=== PATIENT | female | born 1940 | race Caucasian/White ===

== ENCOUNTER 2025-02-06 09:32 | Outpatient (CLI) | payer MEDICARE, SELFPAY ==
--- NOTE | ~2025-02-06 | CT_ITS ---
EXAMINATION: CT_LERTCHWO_CT DATE: 02/06/2025 09:53 INDICATION: Right hip osteoarthritis. TECHNIQUE: Computed tomography (CT) of the right lower limb was performed without intravenous contrast. Automated exposure control and iterative reconstruction technique were employed. The dose-length product was 960.19 mGy-cm. COMPARISON: None FINDINGS: Alignment is normal. No fracture. There is severe lumbar spondylosis. There is severe right hip osteoarthritis and moderate left hip osteoarthritis. 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 There are small bilateral knee joint effusions. There is diverticulosis of the colon without evidence of diverticulitis. IMPRESSION: 1. Severe right hip osteoarthritis and moderate left hip osteoarthritis. Reviewed, dictated and finalized at location E.
--- NOTE | 2025-02-06 10:07 | ECG_ITS ---
Test Date: 2025-02-06 10:25:33 Measurements Intervals [place] Rate: 68 P: 79 NC: 173 QRS: 12 QRSD: 83 T: 46 QT: 390 QTc: 417 Interpretive Statements SINUS RHYTHM NONSPECIFIC T-WAVE ABNORMALITY No previous ECG available for comparison Electronically Signed On 02-06-2025 11:28:06 CDT by Ryan Hay M.D.
[2025-02-06 10:21] LABS: Hematocrit 42.6 % (37.0-47.0); Hemoglobin 14.1 g/dL (12.0-15.0)
[2025-02-06 10:41] LABS: Albumin Level 4.0 g/dL (3.5-5.1); Estimated Glomerular Filt Rate 58
== END 2025-02-06 09:33 | disposition home or self-care (01) ==
PROVIDERS: PCP Physician Assistant; Visit Provider Orthopaedic Surgery
DX: Z01.818 Encounter for other preprocedural examination (principal); M16.0 Bilateral primary osteoarthritis of hip
CPT/HCPCS: 36415; 73700; 82040; 82565; 85014; 85018; 93005

== ENCOUNTER 2025-04-07 12:14 | Outpatient (CLI) | payer MEDICARE, SELFPAY ==
[2025-04-07 15:41] LABS: MRSA (PCR) NOT DETECTED (NOT DETECTE)
== END 2025-04-07 12:15 | disposition home or self-care (01) ==
LOC: ANHSURGERY 12:52
PROVIDERS: PCP Physician Assistant; Visit Provider Orthopaedic Surgery
DX: Z01.818 Encounter for other preprocedural examination (principal); M16.11 Unilateral primary osteoarthritis, right hip
CPT/HCPCS: 80307; 87641

== ENCOUNTER 2025-05-05 01:23 | Day surgery (SDC) | payer MEDICARE, SELFPAY ==
--- NOTE | 2025-04-07 12:55 | PC.NURSE ---
[facility] has started construction of its new state of the art ER which will open Spring 2026. With this, we anticipate parking may be a challenge for some our surgical patients and families. Parking spaces are limited but are available for all Surgical, obstetrics, and ER patients sharing this lot. If you arrive and find you are having a hard time finding a parking space, please note that we understand the challenges, please drive around the hospital and park near Hospital Entrance 1. When you enter this entrance, you can ask a volunteer to direct or take you back to the surgical waiting area to check in. We appreciate everyone?s understanding of these expected challenges while we build for your future. Report to the Outpatient Waiting Room, entrance under the green pavilion located off [address], at time _10 AM on date _05/05/25 . Planned Procedure Time: _1200 NOON .? Time changes happen often and if your time is changed the preop area will call you the afternoon before. - You and your visitor will be asked to self-screen and do not enter if you have any COVID symptoms. Please call surgeon if you need to reschedule. - A mask is optional within the hospital at this time. Patients may have clear liquids (water, carbonated beverages, clear teas, apple juice) until 3 hours prior to surgery( 9AM) with a maximum of 20 ounces. - No food from midnight until time of surgery and no smoking, or chewing tobacco (or any form of nicotine). No chewing gum, candy or mints. - Take only the following medications with a SIP of water on the morning of surgery: __AMLODIPINE_,VENLAFAXINE DO NOT STOP ANY OF YOUR OTHER PRESCRIPTION MEDICATIONS PRIOR TO SURGERY EXCEPT THE FOLLOWING Hold all vitamins and supplements for 3 days per anesthesiologist.LAST DOSE05/01/25 Medications to discontinue per physician _HOLD ASPIRIN 7 DAYS PRE OP PER DR COLLIER Date to take last dose____04/27/25 Please no make-up, nail kyrgyz, hairspray, perfume, deodorant, or body powder the day of surgery.? No jewelry (including any body piercings) or valuables the day of surgery, leave them at home.? Please take a shower or bath the night before, or the morning of, surgery with an antibacterial soap.? Wear comfortable, loose fitting clothing.? Children are encouraged to wear pajamas. - Jewelry must be removed prior to entering the operating room.? Rings and piercings that are not removed may be cut off. - The hospital will not accept responsibility for valuables.? - Please leave all valuables, including medications, at home the day of surgery. If you are going home after surgery, a licensed recycling collections driver must drive you home.? - NO public transportation without another adult if you receive anesthesia. - We recommend that an adult stay with you for 24 hours following discharge. - We also recommend that you do not drive, make important decision, drink alcoholic beverages, or take any drugs that were not prescribed by your health care provider for at least 24 hours after your discharge time. For Pediatric surgeries, we recommend two adults accompany the child home. Follow any additional instructions given to you from your surgeon. VERBAL AND WRITTEN instructions given to ___PATIENT and asked if any additional questions and then verbalized understanding. Patient advised to call surgeon office or pre surgery nurse liaison [phone] if any additional questions.
[2025-04-07 12:58] VITALS: BMI 34.3
[2025-04-07 13:50] VITALS: BP 150/73; PULSE 68; RESP 18; TEMP 37.1; O2SAT 97
[2025-05-05] VITALS (11 sets, daily range): BP systolic 119–148; BP diastolic 49–80; PULSE 68–94; RESP 12–18; TEMP 36.1–36.9; O2SAT 92–100; BMI 33.8
--- NOTE | ~2025-05-05 | XR_ITS ---
EXAMINATION: XR hip RT min 2V DATE: 05/05/2025 15:32 INDICATION: Status post right total hip arthroplasty TECHNIQUE: Anteroposterior view of the pelvis and anteroposterior and cross- table lateral views of the right hip were obtained. COMPARISON: None. FINDINGS: Placement of a noncemented right total hip arthroplasty which appears well seated in near-anatomic alignment. No fracture. Expected soft tissue gas at the operative bed. IMPRESSION: 1. Expected appearance post right total hip arthroplasty which is in near- anatomic alignment. See procedure note for further detail. Reviewed, dictated and finalized at location A. [employer] [employer]CHIT[facility] IMPRESSION: 1. Expected appearance post right total hip arthroplasty which is in near-anato lawson alignment. See procedure note for further detail.
--- NOTE | 2025-05-05 08:06 | WPDHPUPDATE1 ---
History and Physical Update Update Date/Time: 05/05/25 08:06 History and Physical has been reviewed, including an updated exam of the patient. There are NO changes in the patient's condition. Risks, benefits, and alternatives have been discussed and questions answered. Patient agrees to proceed with procedure.
[2025-05-05] MEDS: ACETAMINOPHEN 500 MG TABLET 1000 MG PO (11:20)
[2025-05-05] MEDS: TRANEXAMIC ACID 1,000MG/ISO100 1,000 MG/100 ML BAG 200 MG IVPB (11:32)
--- NOTE | 2025-05-05 12:05 | WPDANESEPPF ---
Anes - Initial Pre Proc Eval Procedure: Operation Date: 05/05/25 12:00 Proposed Procedures p Right Total Hip Arthroplasty - Kike Montes MD Date/Time: 05/05/25 12:05 Surgeon: Kike Montes MD Pre Op Diagnosis: Prim O A Rt Hip Patient Data Age: 84 Gender: F Height: 1.52 m Weight: 78.6 kg Last Vital Signs Temp 36.9 C 05/05/25 10:00 Pulse 68 05/05/25 10:00 Resp 18 04/07/25 13:50 BP 148/77 H 05/05/25 10:00 Pulse Ox 100 05/05/25 10:00 O2 Del Method Room Air 05/05/25 10:00 Allergies Allergy/AdvReac Type Severity Reaction Status Date / Time insect venom Allergy Unknown Swelling Verified 05/05/25 10:47 Home Medications ?Medication ?Instructions ?Recorded ?Confirmed ?Type amlodipine 5 mg tablet 5 mg PO DAILY 10/10/24 05/05/25 History clobetasol 0.05 % topical cream 1 applic topical BID 10/10/24 04/07/25 History lansoprazole 30 mg capsule,delayed 30 mg PO DAILY 10/10/24 04/07/25 History release potassium chloride 10 mEq 10 meq PO DAILY 10/10/24 05/05/25 History capsule,extended release trazodone 50 mg tablet 25 mg PO QHS PRN insomnia 10/10/24 04/07/25 History venlafaxine 75 mg capsule,extended 75 mg PO DAILY 10/10/24 05/05/25 History release 24 hr (Effexor XR) hydrochlorothiazide 12.5 mg tablet 12.5 mg PO DAILY 10/23/24 05/05/25 History aspirin 325 mg capsule 650 mg PO BID PAIN 04/07/25 05/05/25 History multivitamin (Daily Value tablet) 1 tablet PO DAILY 04/07/25 05/05/25 History Laboratory Tests 05/05/25 10:21 Blood Type B Positive Antibody Screen Negative Patient hx anesthesia problems: none Family hx anesthesia problems: none Results Review: All pre-operative results and documents have been reviewed as part of the pre-operative evaluation. [facility] Past Medical History Medical History (Updated 05/05/25 @ 12:06 by Hakeem Vogt MD) HTN (hypertension) Overweight Surgical History Surgical History H/O colonoscopy Hx of tonsillectomy H/O tubal ligation Social History Social History Smoking status: Former smoker Alcohol intake: current Alcohol use details: occasional alcohol use Substance use: never Substance use type: does not use Lack of Transportation: No Lack of Food: Never True Current Housing: I Have Housing Concerned About Future Housing: No Difficulty Paying Gas/Electric Bills: No Difficulty Paying for Meds: No Currently Unemployed: Decline to Answer Education: High School Diploma/GED Difficulty w/ Childcare or Family Care: No Anes - Eval Final PreProcedure Day of Procedure 05/05/25 12:05 Patient weight: obese Heart: regular rate and rhythm Lungs: clear to auscultation Airway: Mallampati scale class II Neurological: alert and oriented Last oral intake: >/= 8 hours ASA classification: III Emergent: no Anesthetic plan: proceed Anesthesia type and monitoring: general ETT and standard monitoring Results Review: All pre-operative results and documents have been reviewed as part of the pre-operative evaluation. Informed Consent: The patient's anesthetic plan and its attendant risks and benefits were discussed with the patient/family/POA. Questions were solicited and answers provided to the satisfaction of the patient/family/POA.
[2025-05-05] MEDS: ceFAZolin 2 GM in SODIUM CHLORIDE 0.9% IV 50 ML 100 ML IVPB ×2 (12:26→20:51)
[2025-05-05] MEDS: SODIUM CHLORIDE 0.9% IV 37.7 ML, MORPHINE SULFATE INJ (*CRX) 2 MG, ROPivacaine HCL 1% 2... INFILTRATE (13:19)
[2025-05-05] MEDS: LACTATED RINGERS 1,000 ML 30 ML IV CONT ×2 (15:14)
--- NOTE | 2025-05-05 15:44 | P.OP_ITS ---
Procedure Note - Detailed Date of Procedure 05/05/25 Pre-op Diagnosis Right hip degenerative arthritis. Post-op Diagnosis Same Procedure Performed Right Total Hip Arthroplasty Surgeon Kike Montes MD Anesthesia General Findings Custom hip optimal fit. Good bone quality. Description of Procedure The patient was given preoperative antibiotics. A general anesthetic was administered. The patient was carefully placed in the lateral decubitus position on the PEG board. The shoulders and hips were carefully positioned for component and leg length positioning reference. The hip was prepped and draped in the usual sterile fashion. A longitudinal incision was created over the posterior aspect of the greater trochanter. Careful dissection was brought down through the deep fascia with electrocautery. A minimally invasive optimized posterior approach to the hip was performed. The short external rotators and capsule were taken down in an L-shaped capsulotomy. The piriformis was spared. The tissue was tagged for later repair using number 2 high strength suture. The femoral neck was dislocated and the cut measured with the patient specific guide. The femoral head was removed. The acetabulum was carefully exposed. The inferior capsule was released. The labrum was resected. The acetabulum was sequentially reamed to 2 under the intended cup size. The cup was impacted into position with excellent press-fit. Typical anatomic landmarks were used to confirm cup positioning with preoperative templating. Attention was turned to the femur, which was carefully exposed. The version guide was used to align the stem. The hip was reamed and then broached sequentially. Excellent press-fit was obtained with the broach. The hip was trialed. Measurements were utilized, including the lesser trochanter as well as the center of the femoral head and the tip of the trochanter, and excellent assessment of the offset and leg lengths were confirmed. The real component was impacted into position. Trialing confirmed appropriate leg length and offset with soft tissue balancing as well apparent feel of the leg, both at the knee and the heel. Soft tissues were assessed using the the iliotibial band. Reduction of the posterior capsule and external rotators were also used as a secondary assessment. The hip was copiously irrigated with pulsatile lavage periodically throughout the procedure. The real components were then assembled and reduced. The hip was stable throughout typical maneuvers, including extension, external rotation to 70 degrees, the position of sleep as well as flexion to 90 degrees with internal rotation past 35 degrees. The shake test confirmed stability without impingement. Osteophytes were removed as necessary. The short external rotators and capsule were repaired back to the posterior trochanter through drill holes. The deep fascia was repaired with running number 2 barbed suture, followed by 2-0 Stratafix suture and 3-0 Stratafix suture in the dermis. Steri- Strips were placed on the skin, followed by a sterile occlusive dressing. There were no complications. Meticulous hemostasis was maintained with the AquaMantys device. The patient was brought to the recovery room in stable condition. There were no complications. Implants Restore 3D Actera hip custom stem size 3 was utilized with excellent press-fit. The 50 mm [place] acetabular component was impacted with excellent press-fit stability. Standard polyethylene liner the +0, 36 mm Biolox ceramic femoral head was utilized. Estimated Blood Loss 250 Drains No Packing No Pathology None sent Complications No immediate complications Condition Stable Disposition PACU [facility] Billing Surgery - Charge Forward: Surgery Billing
[2025-05-05] MEDS: fentaNYL CITRATE INJ (*CRX) 100 MCG/2 ML VIAL 25 MCG IV PUSH (16:16)
[2025-05-05] MEDS: ASPIRIN 81 MG ENTERIC TABLET PO (17:19)
[2025-05-05] MEDS: SENNA/DOCUSATE SODIUM TABLET 2 TAB PO (17:19)
[2025-05-05] MEDS: SODIUM CHLORIDE 0.9% IV 1,000 ML 125 ML IV CONT (17:20)
--- NOTE | 2025-05-05 17:44 | ADMGEN ---
This patient, Kelly Nolasco, was admitted to 3 [facility] Surg Room 313-01. Patient/family oriented to hospital policies and general routines including ID bracelet, bed and alarms, visiting hours, pain management, procedures, bathroom and other care routines, personal items, smoking policy, room service/diet, and visiting hours. Information on how to activate the Rapid Response Team has been discussed. Patient/Family are encouraged to report perceived risks to care and to ask questions if they do not understand what they are told or what they should do. received report from lucia
[2025-05-05] MEDS: PROPARACAINE HCL 0.5% 15 ML OPHTH SOLN 1 DROP EACH EYE (17:52)
[2025-05-05] MEDS: ARTIFICIAL TEARS OPHTH SOLN 15 ML BOTTLE 1 DROP EACH EYE (18:26)
[2025-05-05] MEDS: oxyCODONE/ACETAMINOPHEN (*CRX) 10-325 MG TABLET 1 TAB PO (20:50)
[2025-05-06] MEDS: SODIUM CHLORIDE 0.9% IV 1,000 ML 125 ML IV CONT (02:32)
[2025-05-06] MEDS: ceFAZolin 2 GM in SODIUM CHLORIDE 0.9% IV 50 ML 100 ML IVPB (03:48)
[2025-05-06 05:34] VITALS: BP 158/61; PULSE 83; RESP 18; TEMP 36.7; O2SAT 98
[2025-05-06 06:20] LABS: Hematocrit 36.8 % (37.0-47.0); Hemoglobin 11.8 g/dL (12.0-15.0); Immature Granulocyte Percent A 0.6 % (0-0.5); Lymphocytes Absolute Auto 1.54 K/mm3 (0.9-3.2); Mean Corpuscular HGB Conc 32.1 g/dl (32-36); Mean Corpuscular Hemoglobin 30.8 pg (26-34); Mean Corpuscular Volume 96.1 fl (80-100); Nucleated Red Blood Cells Absolute Auto 0.000 K/mm3 (0.0-0.012); Nucleated Red Blood Cells Perc 0.0 % (0.0-0.2); Platelet Count Result 237 k/mm3 (150-375); Red Blood Count 3.83 M/mm3 (4.2-5.4); White Blood Count 17.2 K/mm3 (4.5-10.0)
[2025-05-06 06:44] LABS: Anion Gap 5 mmol/L (4-12); Blood Urea Nitrogen 17 mg/dL (7-17); Calcium 8.5 mg/dL (8.4-10.2); Carbon Dioxide 26 mmol/L (22-30); Chloride 107 mmol/L (98-107); Estimated CRCL calculation 39 ml/min; Estimated Glomerular Filt Rate > 60; Glucose 106 mg/dL (65-110); Potassium 3.5 mmol/L (3.4-5.0); Sodium 138 mmol/L (137-145)
[2025-05-06] MEDS: oxyCODONE/ACETAMINOPHEN (*CRX) 10-325 MG TABLET 1 TAB PO (08:03)
[2025-05-06] MEDS: SENNA/DOCUSATE SODIUM TABLET 2 TAB PO (09:45)
[2025-05-06] MEDS: MULTIVITAMINS THERAPEUTIC TAB (*BKC) 1 TABLET PO (09:45)
[2025-05-06] MEDS: ASPIRIN 81 MG ENTERIC TABLET PO (09:45)
[2025-05-06] MEDS: POTASSIUM CHLORIDE 10 MEQ ER TABLET PO (09:46)
[2025-05-06] MEDS: VENLAFAXINE HCL XR 75 MG CAP.ER.24H PO (09:46)
== END 2025-05-06 10:37 | disposition home or self-care (01) ==
LOC: ANHSURGERY 09:41 → ANH3MEDSUR 16:45
PROVIDERS: PCP Physician Assistant; Visit Provider Orthopaedic Surgery
PROC: (CPT 27130; principal; 2025-05-05 12:00)
DX: M16.11 Unilateral primary osteoarthritis, right hip (principal); M25.751 Osteophyte, right hip; I10 Essential (primary) hypertension; K21.9 Gastro-esophageal reflux disease without esophagitis; M41.9 Scoliosis, unspecified; G62.9 Polyneuropathy, unspecified; E66.9 Obesity, unspecified; Z68.33 Body mass index [BMI] 33.0-33.9, adult; Z98.890 Other specified postprocedural states; Z98.51 Tubal ligation status; Z79.82 Long term (current) use of aspirin; Z87.891 Personal history of nicotine dependence
CPT/HCPCS: 27130; 36415; 73502; 80048; 85025; 86850; 86900; 86901; 97110; 97161; 97166; 97535; J0690; A9270; J0166; J1100; J1885; J2270; J2405; J2704; J2795; J3010; J3290; J7030; J7120